=== PATIENT | male | born 1950 | race Two or more races ===

== ENCOUNTER 2021-06-05 07:48 | Day surgery (SDC) | payer OTHER | END 2021-06-05 13:55 | disposition home or self-care (01) | LOC: AMB-ENDOS 07:48 | PROVIDERS: ATTEND Surgery | DX: D12.2 Benign neoplasm of ascending colon (principal); D12.3 Benign neoplasm of transverse colon; D12.7 Benign neoplasm of rectosigmoid junction; Z20.822 Contact with and (suspected) exposure to COVID-19 ==